=== PATIENT | male | born 1995 | race Caucasian/White ===

== ENCOUNTER 2016-11-23 17:37 | Emergency (ER) | payer BC ==
[~2016-11-23] VITALS: Ht 170.2 cm; Wt 52.2 kg
[2016-11-23 18:06] VITALS: BP 123/85
--- NOTE | 2016-11-23 20:08 | NUR ---
PT TAKEN TO BED 1
--- NOTE | 2016-11-23 20:26 | NUR ---
Dr. Moraes evaluating patient at bedside.
--- NOTE | 2016-11-23 20:29 | NUR ---
PATIENT PRESENTS TO ED WITH MID-ABD PAIN SINCE YESTERDAY WITH N/V . PT STATES HE HAS ALSO HAD A PRODUCTIVE MOIST COUGH FOR THE PAST 2 WEEKS AND HAS A HX OF ANXIETY . DENIES DIARRHEA; SKIN IS PINK/WARM/DRY; AAOX4 WITH EVEN AND STEADY GAIT; LUNGS CLEAR BL; HR EVEN AND REGULAR; PT DENIES ANY FEVER, CP, OR SOB AT THIS TIME; PATIENT STATES PAIN OF 10/10 AT THIS TIME; VSS; PATIENT POSITIONED FOR COMFORT; HOB ELEVATED; BEDRAILS UP X2; BED DOWN. ER MD MADE AWARE OF PT STATUS.
[2016-11-23] MEDS ORDERED: LORazepam 2 MG/ML VIAL IM ONE (20:35)
[2016-11-23] MEDS ORDERED: KETOROLAC 60 MG/2 ML VIAL IM ONE (20:35)
[2016-11-23] MEDS ORDERED: ONDANSETRON 4 MG/2 ML VIAL IM ONE (20:35)
[2016-11-23] MEDS ORDERED: ONDANSETRON 4 MG/2 ML VIAL ONE (20:38)
--- NOTE | 2016-11-23 20:56 | NUR ---
PT TAKEN TO XRAY
[2016-11-23] MEDS ORDERED: NACL 0.9% 1,000 ML IV ONE ×2 (21:05→22:40)
--- NOTE | 2016-11-23 21:09 | NUR ---
PT RETURN FROM XRAY
--- NOTE | 2016-11-23 21:26 | NUR ---
PT TAKEN TO CT
--- NOTE | 2016-11-23 21:41 | NUR ---
PT RETURN FROM CT
[2016-11-23] MEDS ORDERED: POTASSIUM CHLORIDE 10 MEQ TABER PO ONE (22:35)
[2016-11-23] MEDS ORDERED: HYDROmorphone 1 MG/ML AMP IVP ONE (22:40)
--- NOTE | 2016-11-23 22:45 | NUR ---
PT MOVED TO BED 2
[2016-11-23] MEDS ORDERED: METOCLOPRAMIDE 10 MG/2 ML INJ VIAL IVP ONE (23:40)
[2016-11-24 00:40] VITALS: BP 123/58
--- NOTE | 2016-11-24 00:51 | NUR ---
IV removed, catheter intact and site benign. Applied folded 4x4 gauze and tape to stop bleeding. Patient discharged with v/s stable. Written and verbal after care instructions given and explained. Patient alert, oriented and verbalized understanding of instructions. Ambulatory with steady gait. All questions addressed prior to discharge. ID band removed. Patient advised to follow up with PMD. Rx of ZOFRAN, TYLENOL, AND DIAZEPAM given. Patient educated on indication of medication including possible reaction and side effects. Opportunity to ask questions provided and answered.
== END 2016-11-24 00:51 | disposition home or self-care (01) ==
LOC: MED 17:37
DX: F41.9 Anxiety disorder, unspecified (principal); R11.2 Nausea with vomiting, unspecified; R10.32 Left lower quadrant pain
CPT/HCPCS: 36415; 74022; 74176; 80053; 81002; 85025; 96361; 96372; 96374; 96375; 99285; J1170; J1885; J2060; J2405; J2765; J7030